=== PATIENT | male | born 1970 | race Caucasian/White ===

== ENCOUNTER 2021-05-03 00:55 | Inpatient (IN) | payer MEDICAID ==
[~2021-05-03] VITALS: Ht 165.1 cm; Wt 77.1 kg
--- NOTE | 2021-05-03 02:22 | NUR ---
[employer]ODU[employer] CHECKER AT PT'S BEDSIDE
[2021-05-03] MEDS ORDERED: NITROGLYCERIN 0.4 MG/TAB BOTTLE SL ONE (02:30)
[2021-05-03] MEDS ORDERED: ASPIRIN 325 MG TABLET PO ONE (02:30)
[2021-05-03] MEDS ORDERED: NITROGLYCERIN 0.4 MG/TAB BOTTLE ONE (02:48)
--- NOTE | 2021-05-03 02:49 | NUR ---
RFA #20G S/L; PATENT AND INTACT. BLOOD AND COVID ANTIGEN SWAB COLLECTED AND SENT TO LAB
--- NOTE | 2021-05-03 02:49 | NUR ---
Maude white in [place] - 05/03/21 at 0249 by LURDES rf
[2021-05-03 02:50] LABS: BASOPHILS # (AUTO) 0.1 K/uL (0.0-0.2); BASOPHILS % (AUTO) 1.3 % (0.0-2.0); EOSINOPHILS % (AUTO) 3.1 % (0.0-6.0); HEMATOCRIT 40 % (39-51); HEMOGLOBIN 13.1 g/dL (13.5-17.5); LYMPHOCYTES # (AUTO) 3.2 K/uL (0.8-4.8); LYMPHOCYTES % (AUTO) 45.8 % (20.0-44.0); MEAN CORPUSCULAR HGB CONC 33 g/dl (31.0-36.0); MEAN CORPUSCULAR VOLUME 88 fL (80-96); MONOCYTES # (AUTO) 0.5 K/uL (0.1-1.30); MONOCYTES % (AUTO) 7.8 % (2.0-12.0); NEUTROPHILS # (AUTO) 2.9 K/uL (1.8-8.9); PLATELET COUNT (AUTO) 267 K/uL (150-450); WHITE BLOOD COUNT (AUTO) 6.9 K/uL (4.3-11.0)
[2021-05-03 03:00] LABS: CALCIUM, SERUM 8.8 mg/dL (8.5-10.1); CARBON DIOXIDE 31 mmol/L (21-32); CHLORIDE 105 mmol/L (98-107); GLUCOSE 83 mg/dL (74-106); POTASSIUM 3.8 mmol/L (3.5-5.1); SODIUM SERUM 140 mmol/L (136-145); UREA NITROGEN, BLOOD 12 mg/dL (7-18)
[2021-05-03 03:12] LABS: ALANINE AMINOTRANSFERASE 17 U/L (12-78); ALBUMIN 3.4 g/dL (3.4-5.0); ALKALINE PHOSPHATASE 191 U/L (46-116); ASPARTATE AMINOTRANSFERASE 12 U/L (15-37); BILIRUBIN,TOTAL 0.2 mg/dL (0.2-1.0); TOTAL PROTEIN, SERUM 7.1 g/dL (6.4-8.2)
[2021-05-03] MEDS ORDERED: ONDANSETRON HCL/PF 4 MG/2 ML VIAL IVP PRN (07:00)
[2021-05-03] MEDS ORDERED: MORPHINE SULFATE INJ 2 MG/ML DISP.SYRIN IV PRN (07:00)
[2021-05-03] MEDS ORDERED: ACETAMINOPHEN 325 MG TABLET PO PRN (07:00)
--- NOTE | 2021-05-03 07:57 | NUR ---
REPORT GIVEN TO ANTONINO GARNETT FOR DONAL
[2021-05-03] MEDS: ENOXAPARIN SODIUM 40 MG/0.4 ML DISP.SYRIN SQ SCH (08:00)
[2021-05-03] MEDS ORDERED: ENOXAPARIN SODIUM 40 MG/0.4 ML DISP.SYRIN SQ ONE (08:04)
[2021-05-03] MEDS ORDERED: DIAZ10TA PO (08:06)
[2021-05-03] MEDS ORDERED: OXYC-128 PO (08:06)
--- NOTE | 2021-05-03 08:24 | NUR ---
TRANSFERRED TO BED 315 IN STABLE CONDITION
--- NOTE | 2021-05-03 08:30 | NUR ---
RN NOTES RECEIVED PATIENT FROM EMERGENCY DEPARTMENT. TRANSFERRED VIA [facility] BED ACCOMPANIED BY NURSE AND TECH. PATIENT ON RA SAT 94%. PLACED ON EXTERNAL HEAD OPERATOR SULFIDE READING SB 51 CURRENT VITAL SIGNS ARE:T 98.0, HR 51, RR 18, BP 149/96. SAFETY MEASURES IN PLACE: BED IN LOWEST POSITION, WHEELS LOCKED, SIDE RAILS UP X2, CALL LIGHT WITHIN REACH. WILL CONTINUE TO MONITOR
[2021-05-03] MEDS ORDERED: ASPIRIN 81 MG TAB.CHEW PO SCH (09:00)
[2021-05-03 16:00] VITALS: BP 152/97
--- NOTE | 2021-05-03 19:50 | NUR ---
RN OPENING NOTES RECEIVED PATIENT IN BED WITH EYES CLOSED, EASY TO AROUSE. A/OX4. NO S/S OF APPARENT DISTRESS. DENIES PAIN AT THIS TIME. NO FLUIDS RUNNING AT THIS TIME. TELE MONITOR READING SR 62 BPM. NEEDS ATTENDED TA THE MOMENT. SAFETY IN PLACE, WILL CONTINUE WITH PLAN OF CARE FOR PATIENT.
[2021-05-03 20:00] VITALS: BP 128/75
[2021-05-03] MEDS ORDERED: ATORVASTATIN 10 MG TABLET PO SCH (22:00)
[2021-05-04] VITALS: BP 128/86
--- NOTE | 2021-05-04 02:26 | NUR ---
RN NOTE PATIENT REFUSING TO BE ON THE TELE MONITOR BOX AND TO QUOTE "TAKE THIS MONITOR OFF. I REFUSE THE MONITOR". PATIENT PUT ON STANDBY AND PER PATIENT "DO NOT WAKE ME UP IN THE MORNING WELL" REFUSING VITAL SIGNS.
--- NOTE | 2021-05-04 05:57 | NUR ---
RN NOTE PATIENT REFUSED AM LABS. I ASKED LAB TO COME AGAIN LATER .
--- NOTE | 2021-05-04 06:57 | NUR ---
RN NOTE PATIENT ADAMANTLY REFUSED TO BE IN THE TELE MONITOR WHEN ASKED AGAIN. ALSO REFUSING MRSA SWAB PER PATIENT "THEY ALREADY DID WHAT THEY HAVE TO DO DOWN THERE" WHEN TOLD PATIENT IT IS A DIFFERENT SWAB COLLECTION HE STILL REFUSED SAYING HE DOESN'T WANT IT, ANNOYED, AND TELLING ME TO GO OUT THE ROOM. WILL ENDORSE TO MORNING SHIFT RN.
[2021-05-04] MEDS: ENOXAPARIN SODIUM 40 MG/0.4 ML DISP.SYRIN SQ SCH (07:00)
--- NOTE | 2021-05-04 07:29 | NUR ---
MONITORING ANALYST NOTE REPORT GIVEN TO LISE FOR CONTINUITY OF CARE.
--- NOTE | 2021-05-04 07:30 | NUR ---
ms rn receive don bed, awake,alert,oriented x4,not in any form of distress, respirations even and unlabored,no sob noted, lungs are clean,abdomen soft,positive bowel sounds, denies pain at this time. patient is known to be very none compliant and refusing plan of care.
[2021-05-04 08:00] VITALS: BP 134/75
--- NOTE | 2021-05-04 09:00 | NUR ---
ms victoriano breakfast served, refused blood draw this bee tender and refusing again.
--- NOTE | 2021-05-04 09:55 | NUR ---
ms pastrana was seen by md sagastume/ orders made and carried out.
--- NOTE | 2021-05-04 14:55 | NUR ---
No RN available for CTA Heart Scan per Inspector And Hand Packager Caleb. Floor RN Maria R notified. Will attempt again 05/05/2021
--- NOTE | 2021-05-04 15:00 | NUR ---
ms rn for ct angio heart, refusing to sign consent at this time, will retry it again later.
--- NOTE | 2021-05-04 15:00 | NUR ---
ms rn refused meds, will try again later.
[2021-05-04 16:00] VITALS: BP 152/97
[2021-05-04] MEDS: METOPROLOL TARTRATE 25 MG TABLET PO SCH ×2 (18:05→23:12)
[2021-05-04] MEDS: ASPIRIN EC 81 MG TABLET.DR PO SCH (18:05)
--- NOTE | 2021-05-04 19:00 | NUR ---
ms rn on bed. all needs attended.
--- NOTE | 2021-05-04 19:41 | NUR ---
ms rn patient still refused mrsa swabbing.
[2021-05-04 20:00] VITALS: BP 147/89
--- NOTE | 2021-05-04 20:09 | NUR ---
MS/TELE/RN ON INITIAL SHIFT ROUNDING, PATIENT WAS IN BED AWAKE, ALERT, ORIENTED, COMFORTABLE, NO C/O PAIN, NO DISTRESS NOTED, CALL LIGHT IN REACH, NEEDS ATTENDED, WILL MONITOR. Addendum: 05/05/21 at 0518 by GISELA CEVALLOS RN OFFERED TO PUT BACK TELE BOX AND EXPLAINED IMPORTANCE TO HIS DIAGNOSIS BUT PATIENT REFUSED.
[2021-05-04] MEDS ORDERED: ATORVASTATIN 40 MG TABLET PO SCH (22:00)
--- NOTE | 2021-05-05 01:17 | NUR ---
MS/TELE/RN PATIENT IS SLEEPING AT THIS TIME, APPEARS COMFORTABLE, NO DISTRESS NOTED, CALL LIGHT IN REACH, WILL CONTIINE TO MONITOR.
--- NOTE | 2021-05-05 05:18 | NUR ---
MS/TELE/RN PATIENT REFUSED VITAL SIGNS PER SWEAT BAND SEWER.
--- NOTE | 2021-05-05 06:42 | NUR ---
MS/TELE/RN PATIENT IS AWAKE, ALERT, ORIENTED, COMFORTABLE, NO CHANGE IN CONDITION, REFUSED LOVENOX, EXPLAINED IMPORTANCE, VERBALISED UNDERSTANDING BUT STILL REFUSED, NPO AFTER MIDNIGHT, ALL NEEDS ATTENDED AT THIS TIME, WILL CONTINUE TO MONITOR.
[2021-05-05] MEDS: ENOXAPARIN SODIUM 40 MG/0.4 ML DISP.SYRIN SQ SCH (07:00)
--- NOTE | 2021-05-05 07:18 | NUR ---
RN OPENING NOTES RECEIVED PATIENT IN BED WITH EYES CLOSED, EASY TO AROUSE. A/OX4. PATIENT IS BREATHING EVENLY AND NONLABORED ON ROOM AIR. NO S/S OF APPARENT DISTRESS. DENIES PAIN AT THIS TIME. PATIENT HAS IV ACCESS ON RFA # 20 PATENT AND INTACT.TELE MONITOR IS BEING REFUSED AT THIS TIME EXPLAINED RISK AND BENEFITS STILL REFUSED MD AWARE. SAFETY IN PLACE, BED LOW LOCKED AND CALL LIGHT WITHIN REACH. WILL CONTINUE TO MONITOR
[2021-05-05] MEDS: ASPIRIN EC 81 MG TABLET.DR PO SCH (08:01)
[2021-05-05] MEDS: METOPROLOL TARTRATE 25 MG TABLET PO SCH ×2 (08:01→08:43)
--- NOTE | 2021-05-05 08:01 | NUR ---
RN NOTE PATIENT REFUSED AM MEDICATIONS. STATED BLOOD PRESSURE WAS OKAY, AND DID NOT WANT MEDICATIONS AT THIS TIME
[2021-05-05 08:43] VITALS: BP 167/98
[2021-05-05] MEDS ORDERED: IOHEXOL-350 100 ML VIAL IV ONE (09:13)
[2021-05-05] MEDS ORDERED: IV NS 0.9% 250 ML IV ONE (09:16)
[2021-05-05] MEDS ORDERED: CT SWABBABLE VALVE TRANS SET 1 EA INFUS.SET MC ONE (09:16)
[2021-05-05] MEDS ORDERED: NITROGLYCERIN 0.4 MG/TAB BOTTLE SL PRN (09:30)
[2021-05-05] MEDS ORDERED: METOPROLOL TARTRATE INJ 5 MG/5 ML AMPUL IVP PRN (09:30)
--- NOTE | 2021-05-05 09:47 | NUR ---
Patient refused CTA HEART Exam. RN Ally and charge entry specialist aware.
--- NOTE | 2021-05-05 14:21 | NUR ---
INDIAN NANNY NOTE RECEIVED DISCHARGE ORDER. PATIENT IS A/O X4. PATIENT IS BREATHING EVENLY AND NONLABORED. NO SIGNS OF DISTRESS, CHEST PAIN, OR PAIN. MD CLEARED FOR DISCHARGE. REMOVED IV ACCESS NO BLEEDING NOTED. PATIENT REFUSED TO SHOW BELONGINGS OR SIGN FORM. PATIENT REFUSED SKIN CHECK FOR DISCHARGE. PATIENT WAS GIVEN DISCHARGE INSTRUCTIONS BOTH VERBALLY AND IN WRITTEN FORM. PATIENT VERBALIZED UNDERSTANDING. ID BAND REMOVED. ASKED ABOUT TRANSPORTATION, PATIENT STATED HE DID NOT NEED BUS PASS OR TAXI VOUCHER. PATIENT ALSO STATED HE LIVED WITH ROOMMATE. PATIENT LEFT IN STABLE CONDITION
[2021-05-06] MEDS ORDERED: BUTA1CAP46 PO (04:01)
== END 2021-05-05 14:20 | disposition home or self-care (01) | DRG 198 ==
LOC: ER 01:19 → TRANSITION 05:20 → TELE 07:56
PROVIDERS: ADMIT Nurse Practitioner Acute Care; ATTEND Nurse Practitioner Acute Care
DX: I25.10 Atherosclerotic heart disease of native coronary artery without angina pectoris (principal); E78.5 Hyperlipidemia, unspecified; I10 Essential (primary) hypertension; I25.2 Old myocardial infarction; Z20.822 Contact with and (suspected) exposure to COVID-19; Z88.8 Allergy status to other drugs, medicaments and biological substances; Z95.5 Presence of coronary angioplasty implant and graft; F17.200 Nicotine dependence, unspecified, uncomplicated; Z76.5 Malingerer [conscious simulation]; Z59.00 Homelessness unspecified; Z82.49 Family history of ischemic heart disease and other diseases of the circulatory system; Z82.3 Family history of stroke
CPT/HCPCS: 36415; 71045-TC; 80048-TC; 80076-TC; 83880; 84484-TC; 85025-TC; 85730-TC; C9803; G0378; J1650; J2270; J7050; Q9967

== ENCOUNTER 2021-05-06 03:51 | Emergency (ER) | payer MEDICAID ==
[~2021-05-06] VITALS: Ht 165.1 cm; Wt 77.1 kg
[2021-05-06 03:52] VITALS: BP 166/94
[2021-05-06] MEDS ORDERED: BUTA1CAP46 PO (04:01)
[2021-05-06] MEDS ORDERED: SUMATRIPTAN SUCCINATE 6 MG/0.5 ML VIAL SQ ONE (04:02)
[2021-05-06] MEDS: SUMATRIPTAN SUCCINATE 6 MG/0.5 ML VIAL SQ ONE ×2 (04:03→04:07)
--- NOTE | 2021-05-06 04:19 | NUR ---
Patient discharged to home in stable condition. Written and verbal after care instructions given. Patient verbalizes understanding of instruction. Pt ambulatory with a steady gait
== END 2021-05-06 04:23 | disposition home or self-care (01) ==
LOC: ER 03:53
DX: G43.909 Migraine, unspecified, not intractable, without status migrainosus (principal); I25.2 Old myocardial infarction; I10 Essential (primary) hypertension; F17.200 Nicotine dependence, unspecified, uncomplicated; Z88.6 Allergy status to analgesic agent; Z60.2 Problems related to living alone; Z79.891 Long term (current) use of opiate analgesic; Z79.899 Other long term (current) drug therapy
CPT/HCPCS: J3030